=== PATIENT | female | born 1955 | race Caucasian/White ===

== ENCOUNTER → 2017-07-22 | Day surgery (SDC) | payer OTHER ==
--- NOTE | 2017-07-21 16:22 | Diagnostic Imaging Report ---
PROCEDURE: Frontal and lateral views of the chest. COMPARISON: Patients [facility], , CHEST 2 VIEWS, 07/11/2015, 14:41. INDICATIONS: PRE-OP FINDINGS: Lines/tubes: Right upper chest Port-A-Cath, with catheter distal tip projecting in the mid SVC. Lungs: The lungs are well inflated and clear. There is no evidence of pneumonia or pulmonary edema. Pleura: There is no pleural effusion or pneumothorax. Heart and mediastinum: The heart and the mediastinum are normal. Bones: No acute bony abnormality. IMPRESSION: 1. No acute cardiopulmonary abnormalities. Jak Rizzo M.D. Dictated by: Jak Rizzo M.D. on 07/21/2017 at 16:24 Electronically approved by: Jak Rizzo M.D. on 07/21/2017 at 16:24
[2017-07-21 16:54] LABS: BASOPHILS % 0.3 % (0.0-1.0); EOSINOPHILS % 0.2 % (0.0-6.0); HEMATOCRIT 43.5 % (34.2-44.1); HEMOGLOBIN 14.4 g/dL (12.0-16.0); LYMPHOCYTES # (AUTO) 1.9 (1.0-3.2); LYMPHOCYTES % 16.2 % (18.0-39.1); MEAN CORPUSCULAR HEMOGLOBIN 30.8 pg (28-32); MEAN CORPUSCULAR HGB CONC 33.1 g/dL (31-35); MEAN CORPUSCULAR VOLUME 92.9 fL (81-99); MONOCYTES % 8.4 % (4.4-11.3); NEUTROPHILS # (AUTO) 8.7 (2.1-6.9); NEUTROPHILS % 74.4 % (38.7-80.0); PLATELET COUNT 466 x10e3/uL (140-360); RED BLOOD COUNT 4.68 x10e6/uL (3.6-5.1); RED CELL DISTRIBUTION WIDTH 13.9 % (11.7-14.4)
[2017-07-21 17:09] LABS: ANION GAP 15.1 mmol/L (8-16); BLOOD UREA NITROGEN 20 mg/dL (7-26); BUN/CREATININE RATIO 32 (6-25); CALCIUM 9.2 mg/dL (8.4-10.2); CARBON DIOXIDE 21 mmol/L (22-29); CHLORIDE 107 mmol/L (98-107); CREATININE, SERUM 0.62 mg/dL (0.57-1.11); EST GLOMERULAR FILTRATION RATE > 60 ML/MIN (60-); GLUCOSE 120 mg/dL (74-118); POTASSIUM 4.1 mmol/L (3.5-5.1); SODIUM 139 mmol/L (136-145)
[~2017-07-22] MED LIST: ATORVASTATIN CA20 MG PO; BENEFIBER1 EAC1 PO; BENEFIBER1 EACH PO; BUPIVACAINE 0.25%/EPI 30ML SDV INJ ONE; CITRACAL + D M1 EACH PO; COQ-10100 MG PO; CYMBALTA PO; CYMBALTA30 MG PO; DEXAMETHASONE SOD PHOS INJ 4 MG/ML VIAL ONE; DEXAMETHASONE1.5 MG PO; DEXAMETHASONE6 MG PO; DICYCLOMINE HCL10 MG PO; DICYCLOMINE PO; FENTANYL CITRATE/PF 100MCG/2 ML INJ ONE; GABAPENTIN300 MG PO; LIDOCAINE HCL 2% LOCAL INJ 5 ML SDV VIAL INJ ONE; LISINOPRIL PO; MAGNESIUM400 MG PO; MELATONIN3 MG PO; METHOCARBAMOL500 MG PO; METOCLOPRAMIDE HCL 10 MG/2ML VIAL ONE; METOPROLOL SUCC25 MG PO; MIDAZOLAM HCL 2 MG/2 ML VIAL ONE; MYCOPHENOLATE250 MG PO; NEXIUM; NEXIUM40 MG PO; NORCO 10-325 T1 EACH PO; ONDANSETRON HCL 4 MG ORAL DISINTEGRATING TAB ONE; ONDANSETRON HCL INJ 2 MG/ML VIAL ONE; ONDANSETRON ODT8 MG PO; PANTOPRAZOLE SO40 MG PO; PROPOFOL IV EMULSION 10 MG/ML 20 ML VIAL ONE; SEVOFLURANE INHAL SOLN 250 ML PEN BTL ONE; SUPER B COMPLEX PO; VITAMIN D PO; XANAX1 MG PO
--- OUTSIDE RECORDS SUMMARY | 2017-07-22 06:04 | XMS REPORT ---
Author Author [facility] Address Unknown Phone Unavailable Care Team Providers [facility] Scientist Name Role Phone YUMIKO MART Unavailable Unavailable Problems This patient has no known problems. Allergies, Adverse Reactions, Alerts This patient has no known allergies or adverse reactions. Medications This patient has no known medications. Results Test Description Test Time Test Comments Text Results Atomic Results Result Comments CHEST 2 VIEWS [place] [id number] [place] [id number] Patient Name: MARTELL ASHFORD MR #: [id number] : 1955 Age/Sex: 62/F Req #: [id number] Adm Physician: Ordered by: YUMIKO MART MD Report #: [id number] Location: OR Room/Bed: Procedure: [id number] DX/CHEST 2 VIEWS Exam Date: Exam Time: REPORT STATUS: Signed PROCEDURE: Frontal and lateral views of the chest. COMPARISON: [facility], DX, CHEST 2 VIEWS, 07/11/2015, 14: 41. INDICATIONS: PRE-OP FINDINGS: Lines/tubes: Right upper chest Port-A-Cath, with catheter distal tip projecting in the mid SVC. Lungs: The lungs are well inflated and clear. There is no evidence of pneumonia or pulmonary edema. Pleura: There is no pleural effusion or pneumothorax. Heart and mediastinum: The heart and the mediastinum are normal. Bones: No acute bony abnormality. IMPRESSION: 1. No acute cardiopulmonary abnormalities. Parvin Patino M.D. Dictated by: Parvin Patino M.D. on 07/21/2017 at 16:24 Electronically approved by: Parvin Patino M.D. on 07/21/2017 at 16:24 Dictated By: PARVIN PATINO MD [id number] Transcribed By: ALEAH on 07/21/17 1624 COPY TO: YUMIKO MART MD
--- OUTSIDE RECORDS SUMMARY | 2017-07-22 06:04 | XMS REPORT | Summary of Care ---
Author Author ROMY MONTENEGRO M.D. Organization Unknown Address [facility] Phone Unavailable Care Team Providers Care Principal Automation Engineer Name Role Phone PONCHO Mason, CASS Unavailable Unavailable LAN Mason, ROMY Unavailable Unavailable WENDIE Mason, CRISTINO Unavailable Unavailable NIXON Mason, MONTY Unavailable Unavailable JENNIFER Espinoza, GRAY Unavailable Unavailable LAXMI Mason, SETH Unavailable Unavailable TRICIA SELF DO Unavailable Unavailable PONCHO CRANDALL [place], CASS Unavailable Unavailable Unavailable Unavailable Functional Status Name Dates Details Functional status health issues are not documented Status: Name Dates Details Cognitive status health issues are not documented Status: Problems Name Dates Details Cervical radiculopathy (723.4, M54.12) Status: Active Elevated hemoglobin A1c (790.29, R73.09) Status: Active UTI (urinary tract infection) (599.0, N39.0) Status: Active Psoriasis (696.1, L40.9) Status: Active Dermatomyositis (710.3, M33.90) Status: Active Tinea corporis (110.5, B35.4) Status: Active Encounter for long-term (current) use of high-risk medication (V58.69, Z79.899 ) Status: Active Osteoporosis (733.00, M81.0) Status: Active Vulvar lesion (624.8, N90.89) Status: Active Adnexal fullness (625.8, N94.9) Status: Active Dysuria (788.1, R30.0) Status: Active Anxiety (300.00, F41.9) Status: Active Medications Name Dates Details Vitamin D 76504 UNIT CAPS Active Protonix TBEC * Refills: 0 Active Dexamethasone 1 MG Oral Tablet TAKE 1 TABLET EVERY OTHER DAY * Quantity: 30 Refills: 0 ROMY MONTENEGRO M.D. * Start : 08-May-2015 Active Mycophenolate Mofetil 500 MG Oral Tablet TAKE 3 TABLET TWICE DAILY * Quantity: 180 Refills: 1 ROMY MONTENEGRO M.D. * Start : 08-May-2015 Active DULoxetine HCl - 30 MG Oral Capsule Delayed Release Particles TAKE 1 CAPSULE TWICE DAILY. * Quantity: 60 Refills: 5 CASS ISAAC M.D. * Start : 23-Aug-2015 Active Benefiber TABS * Refills: 0 Active Hydrocodone-Acetaminophen 5-325 MG Oral Tablet * Refills: 0 Active Topicort 0.05 % External Cream APPLY SPARINGLY TO AFFECTED AREA(S) TWICE DAILY * Quantity: 1 Refills: 3 SETH HAIR M.D. * Start : 27-Nov-2015 Active 60 GM Tube Tacrolimus 0.1 % External Ointment APPLY SPARINGLY AND MASSAGE IN TWICE DAILY. * Quantity: 1 Refills: 3 SETH HAIR M.D. * Start : 27-Nov-2015 Active 100 GM Tube TiZANidine HCl - 4 MG Oral Capsule * Refills: 0 Active Phenazopyridine HCl TABS * Refills: 0 Active Fluocinonide 0.05 % External Solution use on itchy spots on scalp BID prn rash or itchy. disp one large stock * Quantity: 60 Refills: 3 MONTY ALICEA M.D. * Start : 17-Jul-2016 Active Premarin 0.625 MG/GM Vaginal Cream Insert 1 gram vaginally at bedtime 3 times weekly for 2 weeks. Then decrease to twice weekly. * Quantity: 1 Refills: 1 CRISTINO PRESSLEY M.D. * Start : 06-Aug-2016 Active 30 GM Tube ClonazePAM 0.5 MG Oral Tablet TAKE 1 TABLET 2 TIMES DAILY NEEDED. * Quantity: 60 Refills: 0 ROMY MONTENEGRO M.D. * Start : 25-Aug-2016 Active Sulfamethoxazole-Trimethoprim 800-160 MG Oral Tablet TAKE 1 TABLET TWICE DAILY. * Quantity: 14 Refills: 0 JENNIFER N.PGRAY Leone * Start : 08-Oct-2016 Active Allergies and Adverse Reactions Name Dates Details Aspirin TABS (Allergy) Status: Active Codeine Derivatives (Allergy) Status: Active PredniSONE TABS (Allergy) Status: Active Past Medical History Name Dates Details History of Fatty liver disease, nonalcoholic (571.8, K76.0) Status: Resolved Procedures Procedure Dates Details History of cholecystectomy Completed History of hysterectomy abdominal Completed History of back surgery Completed Immunization Name Dates Details Immunizations not documented Family History Name Dates Details Family history of Colon cancer (153.9, C18.9) Status: Active Name Dates Details No pertinent family history Status: Active Social History Name Dates Details - Status: Name Dates Details Former smoker Vital Signs Date Test Result Details No Known Vitals to report Results Date Description Value Details Results not documented Plan of Care Name Dates Details Planned Observations Planned Goals not documented Planned Encounters Appointment; CRISTINO PRESSLEY M.D. On: 30-Sep-2017 11:20 Interventions Provided Medication Changes* Dexamethasone 1 MG Oral Tablet - Renew * Mycophenolate Mofetil 500 MG Oral Tablet - Renew Instructions Name Dates Details Instructions not documented Encounters Appointment; Bonnie López M.D. Encounter Diagnosis: Problem not documented On: 08-May-2015 15:00 Appointment; Bonnie López M.D. Encounter Diagnosis: Problem not documented On: 22-May-2015 14:30 Appointment; Bonnie López M.D. Encounter Diagnosis: Problem not documented On: 19-Jun-2015 12:50 Appointment; Bonnie López M.D. Encounter Diagnosis: Problem not documented On: 17-Jul-2015 13:15 Appointment; CASS ISAAC M.D. Encounter Diagnosis: Problem not documented On: 24-Jul-2015 8:00 Appointment; CASS ISAAC M.D. Encounter Diagnosis: Problem not documented On: 24-Jul-2015 8:00 Appointment; Bonnie López M.D. Encounter Diagnosis: Problem not documented On: 17-Aug-2015 10:45 Appointment; SOHAN MONAE M.D. Encounter Diagnosis: Problem not documented On: 14-Sep-2015 11:00 Appointment; Bonnie López M.D. Encounter Diagnosis: Problem not documented On: 02-Oct-2015 13:00 Appointment; CASS ISAAC M.D. Encounter Diagnosis: Problem not documented On: 22-Nov-2015 8:30 Appointment; Bonnie López M.D. Encounter Diagnosis: Problem not documented On: 27-Nov-2015 12:50 Appointment; Bonnie López M.D. Encounter Diagnosis: Problem not documented On: 07-Jan-2016 13:00 Appointment; CASS ISAAC M.D. Encounter Diagnosis: Problem not documented On: 10-Jan-2016 9:00 Appointment; ROMY MONTENEGRO M.D. Encounter Diagnosis: Problem not documented On: 14-Feb-2016 14:15 Appointment; ROMY MONTENEGRO M.D. Encounter Diagnosis: Problem not documented On: 03-Apr-2016 13:30 Appointment; ROMY MONTENEGRO M.D. Encounter Diagnosis: Problem not documented On: 15-May-2016 12:50 Appointment; ROMY MONTENEGRO M.D. Encounter Diagnosis: Problem not documented On: 09-Jun-2016 11:00 Appointment; CASS ISAAC M.D. Encounter Diagnosis: Problem not documented On: 19-Jun-2016 11:00 Appointment; CASS ISAAC M.D. Encounter Diagnosis: Problem not documented On: 10-Jul-2016 11:00 Appointment; CASS ISAAC M.D. Encounter Diagnosis: Problem not documented On: 17-Jul-2016 9:00 Appointment; ROMY MONTENEGRO M.D. Encounter Diagnosis: Problem not documented On: 17-Jul-2016 13:45 Appointment; CRISTINO PRESSLEY M.D. Encounter Diagnosis: Problem not documented On: 06-Aug-2016 12:00 Appointment; ROMY MONTENEGRO M.D. Encounter Diagnosis: Problem not documented On: 28-Aug-2016 13:00 Appointment; CRISTINO PRESSLEY M.D. Encounter Diagnosis: Problem not documented On: 01-Oct-2016 11:20 Appointment; ROMY MONTENEGRO M.D. Encounter Diagnosis: Problem not documented On: 21-Oct-2016 10:15 Appointment; CASS ISAAC M.D. Encounter Diagnosis: Problem not documented On: 04-Nov-2016 11:30
--- NOTE | 2017-07-22 12:58 | Operative Report ---
DATE OF PROCEDURE: July 22, 2017 PREOPERATIVE DIAGNOSIS: Eroded, malfunctioning, right subclavian venous Port-A-Cath. POSTOPERATIVE DIAGNOSIS: Eroded, malfunctioning, right subclavian venous Port-A-Cath. OPERATION PERFORMED: Removal of right subclavian venous Port-A-Cath. ANESTHESIA: General. COMPLICATIONS: None. ESTIMATED BLOOD LOSS: Minimal. DESCRIPTION OF PROCEDURE: With the patient lying in bed in the supine position, under good general anesthesia, the right chest was prepped with Betadine solution and draped in the usual manner. There was a Port-A-Cath that was eroded and partially sticking out of the chest wall in the right anterior chest. The area around the entire Port-A-Cath and capsule was then infiltrated with 1/4 percent Marcaine with epinephrine. An elliptical incision was made to include the eroded opening plus some of the surrounding skin. The incision was then deepened through the subcutaneous tissue. The Port-A-Cath was not anchored with any stitches to the deep tissues, so the Port-A-Cath was then removed without any difficulty in its entirety and sent for pathological examination. The whole area was thoroughly irrigated and cleansed with Betadine solution. The patient has been taking steroids for many years, and her tissues extremely friable with extremely thin skin. The subcutaneous tissue was approximated with interrupted sutures of 3-0 Vicryl, and the skin was closed with interrupted vertical mattress sutures of 3-0 nylon. A dressing was applied. The sponge, lap and needle count was correct. Patient tolerated the procedure well and returned to the recovery room in stable condition. Job#: [id number]
== END | disposition home or self-care (01) ==
LOC: OR 06:01
PROVIDERS: ATTEND Surgery
DX: T85.618A Breakdown (mechanical) of other specified internal prosthetic devices, implants and grafts, initial encounter (principal); L98.499 Non-pressure chronic ulcer of skin of other sites with unspecified severity; G89.29 Other chronic pain; I10 Essential (primary) hypertension; G47.33 Obstructive sleep apnea (adult) (pediatric); K21.9 Gastro-esophageal reflux disease without esophagitis; M33.90 Dermatopolymyositis, unspecified, organ involvement unspecified; G62.9 Polyneuropathy, unspecified; Y83.8 Other surgical procedures as the cause of abnormal reaction of the patient, or of later complication, without mention of misadventure at the time of the procedure; Z88.6 Allergy status to analgesic agent; Z88.5 Allergy status to narcotic agent; Z01.810 Encounter for preprocedural cardiovascular examination; Z01.812 Encounter for preprocedural laboratory examination; Z01.818 Encounter for other preprocedural examination
CPT/HCPCS: 36415; 36590; 71046; 80048; 85025; 88302; 93005; J1100; J2001; J2250; J2405; J2765; 88300